=== PATIENT | female | born 1995 | race Caucasian/White ===

== ENCOUNTER 2019-02-04 18:21 | Outpatient (CLI) | payer OTHER ==
[~2019-02-04] VITALS: Ht 162.6 cm; Wt 68.2 kg
[2019-02-04 18:41] VITALS: BP 131/77; PULSE 103; TEMP 98.3
[2019-02-04] MEDS ORDERED: PRENATAL 191 TAB PO (18:47)
[2019-02-04 18:50] VITALS: BP 131/77; PULSE 103; TEMP 98.3
--- NOTE | 2019-02-04 18:50 | NUR ---
1830- Patient placed on EFM. VSS. 183- Nitrazine test negative with no jell. SVE 0/50/-3 with no fluid return. 1846- Dr. Foy called at this time. See physician notification documentation.
== END 2019-02-04 19:00 | disposition home or self-care (01) ==
LOC: LDRO 18:21
DX: O42.92 Full-term premature rupture of membranes, unspecified as to length of time between rupture and onset of labor (principal); Z3A.30 30 weeks gestation of pregnancy